=== PATIENT | female | born 1965 | race Hispanic/Latino ===

== ENCOUNTER 2018-11-24 07:41 | Day surgery (SDC) | payer OTHER ==
[~2018-11-24 07:41] MED LIST: GLYCOPYRROLATE 0.2 MG/ML SYR ONE; MIDAZOLAM HCL 2 MG/2 ML INJ ONE; PROPOFOL 200 MG/20 ML VIAL IV ONE
[2018-11-24] MEDS ORDERED: DEXAMETHASONE 10 MG/ML VIAL ONE (07:42)
[2018-11-24] MEDS ORDERED: FENTANYL CITR 250 MCG/5 ML ONE (07:42)
[2018-11-24] MEDS ORDERED: LIDOCAINE 2% MPF 5 ML VIAL ONE (07:42)
[2018-11-24] MEDS ORDERED: ROCURONIUM 50 MG/5 ML VIAL IV ONE ×2 (07:43→11:56)
[2018-11-24] MEDS ORDERED: NEOSTIGMINE 1 MG/ML -10 ML VIAL ONE (07:46)
[2018-11-24] MEDS ORDERED: ONDANSETRON 4 MG/2 ML VIAL ONE ×2 (07:46→14:03)
[2018-11-24] MEDS ORDERED: CEFAZOLIN/SWI 1gm 1 GM/10 ML SYR ONE (08:23)
[2018-11-24] MEDS ORDERED: Ringers Lactate 1,000 ML IV ONE ×2 (08:23→09:05)
[2018-11-24] MEDS ORDERED: BACITRACIN 50000 UNIT VIAL ONE (09:05)
[2018-11-24] MEDS ORDERED: NS 0.9% VIAL 20 ML ONE (09:05)
[2018-11-24] MEDS ORDERED: CEFAZOLIN SODIUM 1 GM/VIAL ONE (09:05)
[2018-11-24] MEDS ORDERED: GENTAMICIN SULF 80 MG/2ML INJ ONE (09:05)
[2018-11-24] MEDS ORDERED: SCOPOLAMINE HYDROBROMIDE PATCH TD ONE (10:00)
[2018-11-24] MEDS ORDERED: EPHEDRINE SULF 50 MG/ML VIAL ONE (10:06)
[2018-11-24] MEDS: Ringers Lactate 1,000 ML IV ONE ×2 (13:09→13:23)
[2018-11-24] MEDS ORDERED: FENTANYL CITR 100 MCG/2 ML ONE (13:22)
[2018-11-24] MEDS ORDERED: MORPHINE 10 MG/ML VIAL ONE (13:22)
[2018-11-24] MEDS ORDERED: Mastisol Adhesive Liq ONE ×2 (14:26→14:36)
[2018-11-24] MEDS: MEPERIDINE HCL 50 MG/ML AMP ONE ×2 (14:43→14:48)
[2018-11-24] MEDS ORDERED: HYDROCODONE/APAP 7.5/325 MG TAB ONE (16:41)
--- NOTE | 2018-11-25 01:53 | OP ---
Surgeon: Anthony Barr MD Gas Meter Installer: Jose. Preoperative Diagnosis: Breast descent, status post breast augmentation. Postoperative Diagnosis: Breast descent, status post breast augmentation. Procedure Performed: Explantation and lift. Anesthesia: General. Description Of Procedure: After satisfactory induction of anesthesia, her chest was prepped with Dur aPrep. Dry sterile drapes applied in the usual manner. A 42 mm template was used to outline the are liliam. Incision was made with a scalpel. Then, transverse and curvilinear incisions were made. The i ntervening skin was de-epithelialized with the dermabrader or EpiCut. Then, the transverse incision was made. The flap was thinned to approximately 0.5 cm thickness. Flap was elevated and continued t owards the sternum, clavicle, anterior axillary line. Then, the inferior incision was made. The rig ht implant was removed from incision at the subcutaneous tissue at approximately 9 o'clock position. Implant was dislocated inferolaterally. The left implant was removed from an incision at the 9 o'cl ock position, . The right implant was 514 cc, left implant was 504 cc. The intervening sk in was formed into a cone using 2-0 PDS sutures and the straps were over 12 o'clock, 1:30, and 3 o'cl ock position. The right breast mirror image on the left. The straps were then woven in and out of t he pectoralis major muscle, back to the base of the cone, back to the pectoralis major muscle, and ti ed to themselves with 2-0 PDS suture. This was done for 12 o'clock and 1:30 straps. The 3 o'clock s trap was sewn at 3 o'clock position with 2-0 Ethibond. Mirror image was done left side. Wound was t emporarily stapled shut and patient sat up. Dog-ears were marked out. Excess skin cut out as well a s breast tissue. 10 KHOA was brought out of the axilla, sewn in place with 4-0 silk; and then the woun d was closed in layers, 3-0 Vicryl subcu, 3-0 PDS running subcuticular tie in the vertical meridian b reast. Both sides were closed. The patient was sat up. Site for new nipple-areolar complex was mar ked out. A 42 template was used. Tissue was cored out, and nipple was delivered and sewn with inter rupted 4-0 PDS followed by 4-0 PDS running subcuticular. Dressings consisted of tincture of benzoin, Steri-Strips, fiberglass large fluffs, and Justino wrap. The patient tolerated the procedure well and r eturned to recovery. LUIS/KLARISSA Voice ID: [id number] Report ID: [id number]
== END 2018-11-24 17:45 | disposition home or self-care (01) ==
LOC: OR 07:41
PROVIDERS: ATTEND Specialist
PROC: 0HPT0JZ Removal of Synthetic Substitute from Right Breast, Open Approach (ICD-10-PCS; 2018-11-24)
PROC: 0HSV0ZZ Reposition Bilateral Breast, Open Approach (ICD-10-PCS; 2018-11-24)
PROC: 0HPU0JZ Removal of Synthetic Substitute from Left Breast, Open Approach (ICD-10-PCS; principal; 2018-11-24 09:00)
DX: N65.1 Disproportion of reconstructed breast (principal); N60.42 Mammary duct ectasia of left breast
CPT/HCPCS: 88305; J0690; J1100; J1580; J2175; J2250; J2405; J2704; J2710; J3010